=== PATIENT | female | born 1985 | race Caucasian/White ===

== ENCOUNTER 2017-02-14 06:27 | Emergency (ER) | payer OTHER ==
[~2017-02-14] VITALS: Ht 152.4 cm; Wt 81.7 kg
--- NOTE | ~2017-02-14 | EKG ---
[place] [address] [facility] [place] [address] ELECTROCARDIOGRAM REPORT Name: ALICIA PIMENTEL Room #: REG AMEE Bonds#: [id number] Admission: 02/14/17 Attend Phys: Discharge: Date of : 89 Report #: [id number] THIS REPORT FOR: //name// [facility] ED Test Date: 2017-02-14 Test Time: 06:56:05 Pat Name: ALICIA PIMENTEL Department: Room: Gender: F [employer]: JOSE : 1985 Requested By: Marleny Eaton Order Number: [id number] MD: Aaron Galvan Measurements Intervals [place] Rate: 92 P: 70 [place]: 143 QRS: 47 QRSD: 90 T: 28 QT: 363 QTc: 450 Interpretive Statements Sinus rhythm Normal tracing No previous ECG available for comparison Electronically Signed On 02-14-2017 7:55:20 CDT by Aaron Galvan [email or web address] <ELECTRONICALLY SIGNED> By: Aaron Galvan MD, [facility] 02/14/17 0755 [id number] Aaron Galvan MD, FACC /EPI
[~2017-02-14 06:27] MED LIST: NOHOMEMEDICATIONS; ULTRAM 50MG TAB50 MG PO
[2017-02-14 06:58] LABS: ABSOLUTE NEUTROPHILS 6.8 thou/uL (1.4-8.2); BASOPHILS 0.4 % (0.0-2.0); EOSINOPHILS 0.2 % (0.0-3.0); HEMOGLOBIN 14.7 gm/dL (12.0-15.0); LYMPHOCYTES 13.2 % (24.0-44.0); MCH 30.8 pg (26.0-34.0); MCHC 34.3 g/dL (28.0-37.0); MCV 89.8 fL (80.0-100.0); MONOCYTES 7.9 % (1.0-8.0); PLATELET COUNT 262 thou/uL (150-400); POLYS 78.3 % (36.0-66.0); RBC 4.78 mil/uL (4.20-5.00); RDW 13.1 % (10.5-14.5); WBC 8.8 thou/uL (4.0-11.0)
[2017-02-14 07:01] LABS: MANUAL DIFF NO
[2017-02-14 07:08] LABS: ANION GAP 9 mmol/L (7-16); BUN 7 mg/dL (7-18); CALCIUM 8.7 mg/dL (8.5-10.1); CHLORIDE 103 mmol/L (98-107); CO2 24 mmol/L (21-32); CREATININE 0.6 mg/dL (0.6-1.0); GLUCOSE 105 mg/dL (74-106); SODIUM 136 mmol/L (136-145)
[2017-02-14 07:17] LABS: TROPONIN-I < 0.04 ng/mL (<0.04-0.07)
[2017-02-14] MEDS ORDERED: TUSSIONEX PENN115 ML PO (09:12)
== END 2017-02-14 10:37 | disposition home or self-care (01) ==
LOC: ER 06:27
PROVIDERS: Emergency Medicine
DX: J06.9 Acute upper respiratory infection, unspecified (principal); F10.99 Alcohol use, unspecified with unspecified alcohol-induced disorder; Z90.49 Acquired absence of other specified parts of digestive tract